=== PATIENT | male | born 1935 | race Caucasian/White ===

== ENCOUNTER 2019-04-16 15:19 | Inpatient (IN) ==
--- OUTSIDE RECORDS SUMMARY | 2019-04-16 15:22 | External Medical Summary | Continuity of Care Document ---
:1935 Author Name Eric Coronel, Provider Address Unavailable Unavailable , Care Team Providers Name Role Phone Demond [email or web address], [email or web address] Unavailable Unavailable Unavailable Unavailable Unavailable Problems Diabetes (250.00) (E11.9) Hyperlipidemia (272.4) (E78.5) Abscess of groin (682.2) (L02.214) Groin rash (782.1) (R21) Allergies and Adverse Reactions No Known Drug Allergies (Allergy) Medications Aspirin Adult Low Strength 81 MG Oral Ta blet Delayed Release; TAKE 1 TABLET DAILY. Start: 02-Feb-2016 Refills: 0 Atorvastatin Calcium 10 MG Oral Tablet; TAKE 1 TABLET DAILY. Start: 02-Feb-2016 Refills: 0 Cholecalciferol Crystals; USE DIRECTED. Start: 02-Feb-2016 Refills: 0 Diclofenac Sodium 75 MG Oral Tablet Delayed Release Start: 02-Feb-2016 Refills: 0 Lantus 100 UNIT/ML Subcutaneous Solution; INJECT SUBCUTANEOU SLY DIRECTED. Start: 02-Feb-2016 Refills: 0 HumuLIN R 100 UNIT/ML Injection Solution ; INJECT UNITS DIRECTED BASED ON BLOOD GLUCOSE Start: 02-Feb-2016 Refills: 0 Valsartan 40 MG Oral Tablet; TAKE 1 TABLET DAILY. Start: 02-Feb-2016 Refills: 0 Nystatin Powder; USE DIRECTED. Berna Chase art: 20-Feb-2016 Quantity: 1 1 Powder Bottle Refills: 2 Procedures History of Inguinal Hernia Repair Status : Completed History of Incision And Drainage Of Skin Abscess, Complicate d Status: Completed Immunizations Immunizations not documented Family History Father Family history of malignant neoplasm (V16.9) (Z80.9) Status: Active Social History - Smoking Status Never smoker Plan of Treatment Planned Observations Planned Goals not documented Results No Known Results Results not documented
[2019-04-16] MEDS ORDERED: SODIUM CHLORIDE 0.9% 500 ML IV SCH (15:45)
[2019-04-16 15:47] LABS: Basophils # (auto) 0.02 K/uL (0-0.2); Basophils % (auto) 0.2 %; Eosinophils # (auto) 0.14 K/uL (0-0.5); Eosinophils % (auto) 1.6 %; Hematocrit (blood only) 39.7 % (42-52); Hemoglobin 13.3 g/dL (14.0-18.0); Immature Granulocytes # (auto) 0.08 K/uL (0.00-0.02); Immature Granulocytes % (auto) 0.9 %; Lymphocytes # (auto) 2.04 K/uL (1.2-3.4); Lymphocytes % (auto) 23.4 %; Mean Corpuscular Hgb Conc 33.5 g/dL (32-36); Mean Corpuscular Volume 91.1 fL (80-100); Mean Platelet Volume 11.2 fL (7.4-10.4); Monocytes # (auto) 0.79 K/uL (0.11-0.59); Monocytes % (auto) 9.1 %; Neutrophils # (auto) 5.65 K/uL (1.4-6.5); Neutrophils % (auto) 64.8 %; Platelet Count 157 K/uL (130-400); RDW Coefficient of Variation 13.6 % (11.5-14.5); RDW Standard Deviation 45.7 fL (36.4-46.3); Red Blood Count 4.36 M/uL (4.7-6.1); White Blood Count 8.72 K/uL (4.8-10.8)
[2019-04-16 15:56] LABS: Prothrombin Time 10.3 Seconds (9.0-12.0)
[2019-04-16 16:30] LABS: Alanine Aminotransferase 29 U/L (12-78); Albumin Globulin Ratio 0.6 (0.9-2); Albumin Level 2.8 gm/dl (3.4-5.0); Alkaline Phosphatase 77 U/L (45-117); Bilirubin,Total 0.7 mg/dl (0.2-1); Blood Urea Nitrogen 35 mg/dl (7-18); Carbon Dioxide 25 mmol/L (21-32); Chloride 109 mmol/L (98-107); Est GFR (Non-African American) 45.7; Globulin 4.5 gm/dl (2.5-4.0); Glucose 218 mg/dl (70-99); Phosphorus 3.6 mg/dl (2.5-4.9); Sodium 140 mmol/L (136-145); Total Protein 7.3 gm/dl (6.4-8.2); Troponin I < 0.015 ng/ml (0-0.045)
--- NOTE | 2019-04-16 16:42 | XRay Report ---
XR chest 1V portable HISTORY: Syncope. weakness COMPARISON: Chest 01/29/2016. FINDINGS: There are low lung volumes. The cardiac silhouette remains mildly enlarged. No pleural effu sions. No pneumothorax. A few bibasilar linear densities. This favors subsegmental atelectasis. The l ungs are otherwise clear. No evidence for pulmonary edema. IMPRESSION: Low lung volumes with bibasilar linear densities favor and subsegmental atelectasis. Stable mild card iomegaly. Electronically signed by: Davis Goss M.D. 04/16/2019 4:41 PM
[2019-04-16 17:11] LABS: Potassium 4.5 mmol/L (3.5-5.1)
[2019-04-16 17:16] LABS: Magnesium 2.2 mg/dl (1.8-2.4)
[2019-04-16] MEDS ORDERED: DIPHTHERIA/TETANUS/PERTUSSIS 0.5 ML SYR/VIAL IM ONE (17:19)
[2019-04-16] MEDS ORDERED: LIDOCAINE/EPINEPHRINE 1% 20 ML VIAL INFIL ONE (17:19)
--- NOTE | 2019-04-16 17:29 | CT Scan Report ---
CT cervical spine wo con CT DOSE: 1085.57 mGy.cm CLINICAL HISTORY: 83 years-old Male with s/p fall. Acute head and neck injury status post fall COMPARISON: CT head of same day TECHNIQUE: Multiple axial CT images of the cervical spine were obtained without contrast. A dose low ering technique was utilized adhering to the principles of ALARA. FINDINGS: Demineralized appearance of the bones. Partially calcified pain is posterior to the deltoid process. Severe degenerative changes at C1-C2. No acute fracture or subluxation identified. Nuchal ligament ca lcifications are noted. Severe multilevel facet arthrosis. Mostly mild multilevel disc space narrowin g with mild to moderate spondylitic spurring. Posterior disc osteophyte complex formation noted at C3 -C4. Evaluation of the central canal and neuroforamina is better assessed by MRI. Mastoid air cells a nd middle ear cavities are clear. Lung apices are clear. No prevertebral soft tissue swelling. Soft t issues are unremarkable. IMPRESSION: No acute cervical spine fracture or subluxation. The above report was generated using voice recognition software. It may contain grammatical, syntax o r spelling errors. Electronically signed by: Yovany Lou M.D. 04/16/2019 5:27 PM
--- NOTE | 2019-04-16 17:31 | CT Scan Report ---
CT head/brain wo con CLINICAL HISTORY: 83 years-old Male with s/p fall, lac to top of head. Acute head injury status post fall with scalp laceration TECHNIQUE: Multiple axial CT images of the head were obtained without contrast. A dose lowering tech nique was utilized adhering to the principles of ALARA. COMPARISON: CT cervical spine of same day FINDINGS: No acute intracranial hemorrhage, midline shift, intracranial mass, hydrocephalus, territorial ischem ia or abnormal extra-axial collection. Age-related involutional changes. 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 Cerebral vascular calcifications are note d. The calvarium is intact. Mild mucosal thickening about the nasal turbinates and ethmoid air cells. T he opacified imaged left maxillary sinus. Orbits are unremarkable. Right parietal scalp laceration ne ar the vertex with mild subcutaneous edema. No opaque foreign body. IMPRESSION: 1. No acute intracranial abnormalities or calvarial fracture. 2. Right parietal scalp laceration with associated mild subcutaneous edema. No opaque foreign body. The above report was generated using voice recognition software. It may contain grammatical, syntax o r spelling errors. Electronically signed by: Yovany Lou M.D. 04/16/2019 5:30 PM
[2019-04-16] MEDS ORDERED: SODIUM CHLORIDE 0.9% 1000ML 500 ML IV ONE (17:57)
[2019-04-16 18:40] LABS: Lyme Ab IgG w/WB Rflx Negative (Negative); Lyme Ab IgM w/WB Rflx Negative (Negative)
--- NOTE | 2019-04-16 18:41 | History & Physical Report ---
Date of Service April 16, 2019 Assessment & Plan (1) Syncope: Concerned for possible cardiac etiology with no prodrome, waking up lucid and bradycardia noted by EMS on arrival to the scene. Pt denies chest pain, lightheadedness, nausea. He is asymptomatic. Later in the interview he report ed intermittent dizziness that just began in the last couple of weeks, however. Trend troponin, currently negative. Trend EKGs. Echo in am. (2) Bradycardia: Cont to monitor on telemetry. No dropped beats or pauses. First degree block noted. Not on any AV samira blocking agents. Concern for sick sinus syndrome. Consulted Cardiology to evaluate the need for pacemaker. Keep pacer pads in place overnight. (3) Diabetes: Insulin dependent diabetic. Primarily receives care at the [facility] and is unsure of insulin dosages/types. Will assist with diabetic education while admitted and will request [place] records. A1C for am. Basal bolus insulin ordered with carb coverage and a DMII diet. (4) BLANCA (acute kidney injury): Uncertain baseline creatinine/GFR. Currently .. Will repeat in am. (5) DVT prophylaxis: Heparin Full code confirmed with him on admission Dispo-pending Cardiology recs in am. DO Anali Peña Hospitalist History of Present Illness Chief Complaint: Syncope Primary Care Provider: NO PCP 83-year-old man with insulin-dependent diabetes had an episode of syncope while walking upstairs at a local bank. This was approximately 3:30 in the afternoon and he denies any hypoglycemic symptoms prior to the syncopal episode. He did not feel lightheaded or have any prodromal symptoms prior to syncope. When he awoke on the floor he was clear without any loss of bowel or bladder function. There was no seizure activity noted by bystanders. When EMS arrived they noted his heart rate was in the 30s. According to reports when they placed him on the monitor his heart rate was in the 60s. In the ER telemetry has revealed episodic heart rate drops into the 30s that are asymptomatic. There is a first- degree block and sinus rhythm is present. No dropped beats or pauses are seen on telemetry review. The patient denies feeling ill in the past few days and feels well right now. He denies any chest pain, shortness of breath, fevers, chills, coughing or recent illnesses, UTI symptoms, abdominal pain, changes in stool, blood in his bowel movements. He did just very his 1 month ago and appears to be handling this bereavement normally. He has 1 daughter named Sabrina who lives in [place]. She is his medical power of divorce attorney. He has a [id number] that lives in town whom he is calling to make aware he is here. He is a confirmed full code per my discussion with him this evening. He reports no history of heart disease or heart issues in the past. He denies any history of syncope in the past. There is no evidence of murmur on exam. Of note he is very uncertain of his insulin dosing and reports noncompliance. He is unsure which type of insulin he takes. His care is mainly through the [facility]. Allergies Allergy/AdvReac Type Severity Reaction Status Date / Time No Known Allergies Allergy Verified 04/16/19 15:54 Home Medications Home Medications Medication Instructions Recorded Confirmed Type insulin glargine 0 unit SUBCUT QAM #0 vial 08/18/14 04/16/19 History insulin aspart U-100 [Novolog 15 unit SUBCUT ACHS 04/16/19 04/16/19 History Flexpen U-100 Insulin] Past Med/Surg History Medical History Diabetes (Chronic) Surgical History H/O inguinal hernia repair History of incision and drainage Family History Father Cancer Other No pertinent family history in first degree relatives Social History marital status: / Current Living Situation: Alone Feels Safe at Home: Yes Smoking Status: Never smoker Hx Alcohol Use: No Hx Substance Use: No Review of Systems Review of Systems: All systems reviewed & are unremarkable except as noted in HPI & below Physical Exam Physical Exam: CONSTITUTIONAL: WNWD, vitals as above, generally well- appearing EYES: PERRL, normal conjunctivae, no scleral icterus ENT: external ear and nose normal, oropharynx clear, MMM NECK: trachea midline RESPIRATORY: clear to auscultation bilaterally, no crackles, rales or wheezes, normal respiratory effort CARDIOVASCULAR: regular rate and rhythm, S1 and 2 heard without murmurs, gallops or rubs, no JVD, trace peripheral edema CHEST: inspection of chest was normal GASTROINTESTINAL: normal bowel sounds, soft, nontender, nondistended MUSCULOSKELETAL: strength 5/5 throughout, head is normocephalic with a large laceration that is closed with eyal to posterior scalp. SKIN: warm and dry and wound noted above. NEUROLOGIC: No facial palsy, no dysarthria. CN 2-12 grossly intact, no sensory deficit, normal cognition, normal speech, no tremor. No gross focal deficits. PSYCHIATRIC: alert cooperative and oriented to person, place and time. Results & Data Vital Signs (Past 12 Hours) Vital Signs Temp Pulse Pulse Resp BP BP Pulse Ox 04/16/19 17:30 58 L 20 144/81 H 97 04/16/19 15:40 95 04/16/19 15:29 36.5 C 75 18 146/80 H 95 Laboratory Results Short CBC 04/16/19 Range/Units 15:30 WBC 8.72 (4.8-10.8) K/uL Hgb 13.3 L (14.0-18.0) g/dL Hct 39.7 L (42-52) % Plt Count 157 (130-400) K/uL BMP 04/16/19 04/16/19 15:30 16:47 Sodium 140 Potassium TNP 4.5 Chloride 109 H Carbon Dioxide 25 BUN 35 H Creatinine 1.41 H Glucose 218 H Calcium 9.0 Cardiac Enzymes 04/16/19 Range/Units 15:30 Troponin I < 0.015 (0-0.045) ng/ml Liver Function 04/16/19 04/16/19 Range/Units 15:30 16:47 Total Bilirubin 0.7 (0.2-1) mg/dl AST TNP 17 ALT 29 (12-78) U/L Alkaline Phosphatase 77 (45-117) U/L Albumin 2.8 L (3.4-5.0) gm/dl Diagnostic Findings CT cervical spine wo con CT DOSE: 1085.57 mGy.cm CLINICAL HISTORY: 83 years-old Male with s/p fall. Acute head and neck injury status post fall COMPARISON: CT head of same day TECHNIQUE: Multiple axial CT images of the cervical spine were obtained without contrast. A dose lowering technique was utilized adhering to the principles of ALARA. FINDINGS: Demineralized appearance of the bones. Partially calcified pain is posterior to the deltoid process. Severe degenerative changes at C1-C2. No acute fracture or subluxation identified. Nuchal ligament calcifications are noted. Severe multilevel facet arthrosis. Mostly mild multilevel disc space narrowing with mild to moderate spondylitic spurring. Posterior disc osteophyte complex formation noted at C3-C4. Evaluation of the central canal and neuroforamina is better assessed by MRI. Mastoid air cells and middle ear cavities are clear. Lung apices are clear. No prevertebral soft tissue swelling. Soft tissues are unremarkable. IMPRESSION: No acute cervical spine fracture or subluxation. XR chest 1V portable HISTORY: Syncope. weakness COMPARISON: Chest 01/29/2016. FINDINGS: There are low lung volumes. The cardiac silhouette remains mildly enlarged. No pleural effusions. No pneumothorax. A few bibasilar linear densities. This favors subsegmental atelectasis. The lungs are otherwise clear. No evidence for pulmonary edema. IMPRESSION: Low lung volumes with bibasilar linear densities favor and subsegmental atelectasis. Stable mild cardiomegaly. CT head/brain wo con CLINICAL HISTORY: 83 years-old Male with s/p fall, lac to top of head. Acute head injury status post fall with scalp laceration TECHNIQUE: Multiple axial CT images of the head were obtained without contrast. A dose lowering technique was utilized adhering to the principles of ALARA. COMPARISON: CT cervical spine of same day FINDINGS: No acute intracranial hemorrhage, midline shift, intracranial mass, hydrocephalus, territorial ischemia or abnormal extra-axial collection. Age- related involutional changes. 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 Cerebral vascular calcifications are noted. The calvarium is intact. Mild mucosal thickening about the nasal turbinates and ethmoid air cells. The opacified imaged left maxillary sinus. Orbits are unremarkable. Right parietal scalp laceration near the vertex with mild subcutaneous edema. No opaque foreign body. IMPRESSION: 1. No acute intracranial abnormalities or calvarial fracture. 2. Right parietal scalp laceration with associated mild subcutaneous edema. No opaque foreign body. Code Status & VTE Plan Code Status Full VTE Prophylaxis Plan VTE Prophylaxis will be ordered: Yes Critical Care Time Critical Care Time: No Prolonged Care Time Prolonged Care Time: No
[2019-04-16] MEDS ORDERED: DEXTROSE 50% 50 ML SYRINGE IV PRN (20:56)
[2019-04-16] MEDS ORDERED: GLUCOSE 40% GEL 15 GM TUBE PO PRN (20:56)
[2019-04-16] MEDS ORDERED: GLUCOSE 10 TABS/TUBE PO PRN (20:56)
[2019-04-16] MEDS ORDERED: NITROGLYCERIN SL 0.4 MG/TAB TAB SL PRN (20:56)
[2019-04-16] MEDS ORDERED: MoRPHine SULFATE 2 MG/ML CARP IV PRN (20:56)
[2019-04-16] MEDS ORDERED: ONDANSETRON INJ 2 MG/ML 2 ML VIAL IV PRN (20:56)
[2019-04-16] MEDS ORDERED: ACETAMINOPHEN 325 MG TAB PO PRN (20:56)
[2019-04-16] MEDS ORDERED: CARBOHYDRATES FOR HYPOGLYCEMIA PO PRN (20:56)
[2019-04-16] MEDS ORDERED: GLUCAGON FOR INJ 1 MG VIAL SQ PRN (20:56)
[2019-04-16] MEDS: INSULIN ASPART 100 UNITS/ML 3 ML PEN SC SCH (21:52)
[2019-04-16] MEDS: INSULIN GLARGINE SOLOSTAR 100 UNITS/ML 3 ML PEN SC SCH (21:53)
[2019-04-16] MEDS: HEPARIN SOD 5,000 UNIT/0.5 ML VIAL SQ SCH (21:55)
[2019-04-17 03:27] LABS: Hematocrit (blood only) 39.6 % (42-52); Hemoglobin 13.3 g/dL (14.0-18.0); Mean Corpuscular Hgb Conc 33.6 g/dL (32-36); Mean Corpuscular Volume 91.9 fL (80-100); Mean Platelet Volume 10.7 fL (7.4-10.4); Platelet Count 162 K/uL (130-400); RDW Coefficient of Variation 13.6 % (11.5-14.5); RDW Standard Deviation 45.8 fL (36.4-46.3); Red Blood Count 4.31 M/uL (4.7-6.1); White Blood Count 8.67 K/uL (4.8-10.8)
[2019-04-17 03:50] LABS: BUN Creatinine Ratio 26.2 (10-20); Calcium 8.4 mg/dl (8.5-10.1); Creatinine Clr Calc Pharmacy 57.9 ml/min; Est GFR (African American) 66.4; Est GFR (Non-African American) 57.3; Potassium 3.5 mmol/L (3.5-5.1); Troponin I 0.024 ng/ml (0-0.045)
[2019-04-17] MEDS: HEPARIN SOD 5,000 UNIT/0.5 ML VIAL SQ SCH ×2 (06:03→17:56)
[2019-04-17 06:24] LABS: Estimated Average Glucose 269 mg/dl
[2019-04-17] MEDS: INSULIN ASPART 100 UNITS/ML 3 ML PEN SC SCH ×4 (08:29→20:41)
[2019-04-17] MEDS: INSULIN GLARGINE SOLOSTAR 100 UNITS/ML 3 ML PEN SC SCH ×2 (08:30→20:43)
--- NOTE | 2019-04-17 09:24 | Cardiology Consultation ---
Date of Consultation April 17, 2019 Assessment & Plan (1) Syncope: (2) Bradycardia: (3) Intraventricular conduction delay: (4) First degree AV block: 83-year-old patient admitted with syncope. Symptomatic bradycardia is suspected given underlying conduction disease. Patient remains bradycardic on telemetry with heart rates as low as 38 bpm. [facility]. Avoid all AV samira blocking agents. TSH and Lyme screen within normal limits. Discussed potential need for pacemaker implantation. Patient agreeable. Continued observation on telemetry with tentative plans for possible pacemaker insertion on Friday. Will discuss with electrophysiology. Fall precautions advised. Out of bed with assistance only. Thank you for allowing me to participate in the care of your patient. History of Present Illness Reason for Consultation: Symptomatic bradycardia, syncope Requesting Physician: Dr. Juarez Attending Physician: Flash Juarez MD History of Present Illness 83-year-old patient presented to the emergency department with syncope. Patient in his usual state of health when he proceeded to the bank yesterday. Upon entering the bank he lost consciousness, fell to the ground, struck the back of his head with resultant laceration. Patient became aware while laying on the ground. No postictal state, tonic-clonic movements,, or tongue biting. Denies any incontinence. No prior history of syncope. ECG demonstrates sinus bradycardia, first-degree AV block, with nonspecific intraventricular conduction delay. Admitted through the emergency department. Pulse rate of 30 reported at the scene. Sinus bradycardia with occasional PVCs on telemetry. Heart rates as low as 38/min recorded. No recurrent lightheadedness, dizziness, syncope or near syncope. Patient denies any chest discomfort or unusual shortness of breath. Denies personal history of coronary disease, congestive heart failure, rheumatic fever, or peripheral vascular disease. Carries history of diabetes. Home medications unknown. Patient is a poor historian. States he takes at least 3 medications in the a.m., however, unaware of medication names or doses. Unfortunately, his 1 month ago. He lives independently. Currently resting comfortably offers no concerns/complaints at this time. Allergies Allergy/AdvReac Type Severity Reaction Status Date / Time No Known Allergies Allergy Verified 04/16/19 15:54 Home Medications Home Medications Medication Instructions Recorded Confirmed Type insulin glargine 0 unit SUBCUT QAM #0 vial 08/18/14 04/16/19 History insulin aspart U-100 [Novolog 15 unit SUBCUT ACHS 04/16/19 04/16/19 History Flexpen U-100 Insulin] Patient History Medical History Diabetes (Chronic) Surgical History H/O inguinal hernia repair History of incision and drainage Family History Father Cancer Other No pertinent family history in first degree relatives Social History Preferred Language: Romanian Communication Ability: Effective Customer Counter Representative Required: No Beliefs That Will Affect Care: None marital status: / Current Living Situation: Alone Other Information That Helps Us Care for You: No Feels Safe at Home: Yes Safety Concerns: Feels Safe At This Time Smoking Status: Never smoker Hx Alcohol Use: No Hx Substance Use: No Review of Systems Review of Systems: All systems reviewed & are unremarkable except as noted in HPI & below Physical Exam Physical Exam: General: NAD, AAO x3, well nourished. Poor historian. HEENT: Normocephalic. Atraumatic. Conjunctiva pink, no scleral icterus. Neck: No carotid bruits, the carotid upstrokes are brisk. No JVD. No HJR Heart: Regular bradycardic rhythm with occasional ectopy, normal S-1 and S-2 no S-3 or S-4 gallop. No murmurs or rub appreciated. PMI is not displaced. No RV heave. Lungs: Clear bilateral without rales , rhonchi, or wheeze. Abdomen: Normal bowel sounds. Soft. Nontender. No masses or organomegaly. No abdominal bruits. Extremities: Trace to mild bilateral pedal and ankle edema. Pulses: radial=2/4, Dorsalis pedis =2/4. Neuro: Cranial nerves grossly intact. No focal motor deficit. Results & Data Vital Signs (Past 12 Hours) Vital Signs Temp Pulse Resp BP Pulse Ox 04/17/19 07:32 36.5 C 62 16 142/68 H 97 04/17/19 03:14 36.7 C 56 L 18 147/71 H 98 04/16/19 23:05 36.6 C 64 16 144/72 H 98 Laboratory Results Laboratory Results - last 24 hr 04/16/19 04/16/19 04/16/19 15:30 15:30 15:30 WBC 8.72 RBC 4.36 L Hgb 13.3 L Hct 39.7 L MCV 91.1 MCH 30.5 MCHC 33.5 RDW Std Deviation 45.7 RDW Coeff of Krista 13.6 Plt Count 157 MPV 11.2 H Immature Gran % (Auto) 0.9 Neut % (Auto) 64.8 Lymph % (Auto) 23.4 [place] % (Auto) 9.1 Eos % (Auto) 1.6 Baso % (Auto) 0.2 Immature Gran # (Auto) 0.08 H Neut # (Auto) 5.65 Lymph # (Auto) 2.04 [place] # (Auto) 0.79 H Eos # (Auto) 0.14 Baso # (Auto) 0.02 PT 10.3 INR 1.0 Sodium 140 Potassium TNP Chloride 109 H Carbon Dioxide 25 Anion Gap 6.0 BUN 35 H Creatinine 1.41 H Est Cr Clr Drug Dosing 48.0 Est GFR ( Amer) 53.0 Est GFR (Non-Af Amer) 45.7 BUN/Creatinine Ratio 25.0 H Glucose 218 H POC Glucose Estimat Average Glucose Hemoglobin A1c Calcium 9.0 Phosphorus 3.6 Magnesium TNP Total Bilirubin 0.7 AST TNP ALT 29 Alkaline Phosphatase 77 Troponin I < 0.015 Total Protein 7.3 Albumin 2.8 L Globulin 4.5 H Albumin/Globulin Ratio 0.6 L TSH 1.370 Lyme Disease IgG Ab Lyme Disease IgM Ab 04/16/19 04/16/19 04/16/19 15:30 16:47 20:34 WBC RBC Hgb Hct MCV MCH MCHC RDW Std Deviation RDW Coeff of Krista Plt Count MPV Immature Gran % (Auto) Neut % (Auto) Lymph % (Auto) [place] % (Auto) Eos % (Auto) Baso % (Auto) Immature Gran # (Auto) Neut # (Auto) Lymph # (Auto) [place] # (Auto) Eos # (Auto) Baso # (Auto) PT INR Sodium Potassium 4.5 Chloride Carbon Dioxide Anion Gap BUN Creatinine Est Cr Clr Drug Dosing Est GFR ( Amer) Est GFR (Non-Af Amer) BUN/Creatinine Ratio Glucose POC Glucose 223 H Estimat Average Glucose Hemoglobin A1c Calcium Phosphorus Magnesium 2.2 Total Bilirubin AST 17 ALT Alkaline Phosphatase Troponin I Total Protein Albumin Globulin Albumin/Globulin Ratio TSH Lyme Disease IgG Ab Negative Lyme Disease IgM Ab Negative 04/16/19 04/17/19 04/17/19 21:40 03:11 03:11 WBC 8.67 RBC 4.31 L Hgb 13.3 L Hct 39.6 L MCV 91.9 MCH 30.9 MCHC 33.6 RDW Std Deviation 45.8 RDW Coeff of Krista 13.6 Plt Count 162 MPV 10.7 H Immature Gran % (Auto) Neut % (Auto) Lymph % (Auto) [place] % (Auto) Eos % (Auto) Baso % (Auto) Immature Gran # (Auto) Neut # (Auto) Lymph # (Auto) [place] # (Auto) Eos # (Auto) Baso # (Auto) PT INR Sodium 141 Potassium 3.5 D Chloride 110 H Carbon Dioxide 27 Anion Gap 4.0 BUN 31 H Creatinine 1.17 Est Cr Clr Drug Dosing 57.9 Est GFR ( Amer) 66.4 Est GFR (Non-Af Amer) 57.3 BUN/Creatinine Ratio 26.2 H Glucose 194 H POC Glucose Estimat Average Glucose Hemoglobin A1c Calcium 8.4 L Phosphorus Magnesium Total Bilirubin AST ALT Alkaline Phosphatase Troponin I 0.036 0.024 Total Protein Albumin Globulin Albumin/Globulin Ratio TSH Lyme Disease IgG Ab Lyme Disease IgM Ab 04/17/19 04/17/19 03:11 07:43 WBC RBC Hgb Hct MCV MCH MCHC RDW Std Deviation RDW Coeff of Krista Plt Count MPV Immature Gran % (Auto) Neut % (Auto) Lymph % (Auto) [place] % (Auto) Eos % (Auto) Baso % (Auto) Immature Gran # (Auto) Neut # (Auto) Lymph # (Auto) [place] # (Auto) Eos # (Auto) Baso # (Auto) PT INR Sodium Potassium Chloride Carbon Dioxide Anion Gap BUN Creatinine Est Cr Clr Drug Dosing Est GFR ( Amer) Est GFR (Non-Af Amer) BUN/Creatinine Ratio Glucose POC Glucose 257 H Estimat Average Glucose 269 Hemoglobin A1c 11.0 H Calcium Phosphorus Magnesium Total Bilirubin AST ALT Alkaline Phosphatase Troponin I Total Protein Albumin Globulin Albumin/Globulin Ratio TSH Lyme Disease IgG Ab Lyme Disease IgM Ab (1) Syncope Syncope type: unspecified Qualified Code(s): R55 - Syncope and collapse
--- NOTE | 2019-04-17 09:33 | Emergency Department Note ---
Entered by Dennis Madera acting as a scribe for Damien Rose MD History of Present Illness General Chief complaint: Syncope Stated complaint: SYNCOPE Time Seen by Provider: 04/16/19 15:31 Source: patient History of Present Illness Provider complaint: Syncope Onset (ago): hour(s) (Just prior to arrival) 1 Location: head Radiation: non-radiation Pain Consistency: + other (Episodic) Relieved By: + none Exacerbated By: + none Associated symptoms: no headaches and no nausea/vomiting The patient is an 83 year old male w/ PMHx of DM who presents to the ED after having a syncopal episode about an hour prior to arrival. Per the nurse the patient was walking up steps at the bank when he suddenly syncopized. During the fall the patient struck his head resulting in a laceration on the posterior aspect of his skull. While EMS was assessing the patient he syncopized again but did not fall. The patient states that he felt fine prior to the incident. He notes that he has not eaten much today and he did take his insulin this morning. The patient denies any headache, CP, SOB, or N/V/D. He also denies having a pacemaker, using blood thinners, using tobacco or alcohol. He does not remember when his last tetanus was. Home Medications Home Medications Medication Instructions Recorded Confirmed Type insulin glargine 0 unit SUBCUT QAM #0 vial 08/18/14 04/16/19 History insulin aspart U-100 [Novolog 15 unit SUBCUT ACHS 04/16/19 04/16/19 History Flexpen U-100 Insulin] Allergies Allergy/AdvReac Type Severity Reaction Status Date / Time No Known Allergies Allergy Verified 04/16/19 15:54 Past Med/Surg History Medical History Diabetes (Chronic) Surgical History H/O inguinal hernia repair History of incision and drainage Family History Father Cancer Other No pertinent family history in first degree relatives Social History Preferred Language: Eritrean Communication Ability: Effective Animal Impersonator Required: No Beliefs That Will Affect Care: None marital status: / Current Living Situation: Alone Other Information That Helps Us Care for You: No Feels Safe at Home: Yes Safety Concerns: Feels Safe At This Time Smoking Status: Never smoker Hx Alcohol Use: No Hx Substance Use: No Review of Systems See HPI for pertinent positives & negatives. and A total of 10 systems reviewed and were otherwise negative Physical Exam Vital Signs Vital Signs - 24 hr 04/16/19 15:29 04/16/19 15:40 04/16/19 17:30 Temperature 36.5 C Temperature Source Oral Sepsis Recent Fever Within 48 Hours No Sepsis Action Taken by Nursing No Action Required Pulse Rate 75 Pulse Rate [Apical] 58 L Pulse Rhythm [Apical] Irregular Pulse Strength [Apical] Normal Respiratory Rate 18 20 Respiratory Effort / Characteristics Non-Labored Spontaneous Respiratory Depth Normal Normal Respiratory Pattern Regular Blood Pressure 146/80 H Blood Pressure [Right Arm] 144/81 H Blood Pressure Mean 102 Blood Pressure Mean [Right Arm] 102 Blood Pressure Position [Right Arm] Sitting Pulse Oximetry 95 95 97 Oxygen Delivery Method Room Air Room Air Room Air GENERAL: Well appearing, well nourished, NAD, non-toxic. HEAD: 6cm laceration just superior and horizontal to the occiput, the galea is not visualized, hemostatic. EYE EXAM: Normal conjunctiva. PERRL, no anisocoria and EOM's grossly intact w/o pain. OROPHARYNX: Moist mucus membranes. Grossly normal dentition. NECK: Supple, no nuchal rigidity, no adenopathy, non-tender. No signs of meningismus. No midline C spine TTP. LUNGS: Clear to auscultation. Normal chest wall mechanics. HEART: Bradycardic rate and irregular rhythm, no MRG. ABDOMEN: Abdomen soft, non-tender, normo-active bowel sounds, no masses, no rebound or guarding. BACK: No CVA TTP. SKIN: No rashes and no bruising. UPPER EXTREMITIES: Upper extremities are grossly normal. LOWER EXTREMITIES: No pitting edema. No calf pain. NEURO EXAM: A&O x3, cranial nerves II-XII grossly intact, normal speech, 5/5 strength throughout, no sensory deficits, good finger to nose, no pronator drift, moves all 4 extremities on command w/o issue. Procedures Laceration Laceration 1: Site: scalp Side (If applicable): right Size (cm): 6 Description: linear Depth: simple, single layer Local Anesthetic: lidocaine 1% and with epi Amount of anesthesia used (mL): 5 Pre-repair: irrigated extensively Skin layer closed with: other (eyal) Number of sutures: 6 Course 153: Past medical records reviewed. The patient was evaluated in room C07, and a complete history and physical examination were performed. The patient's blood sugar was 227 upon arrival. 1755: I spoke [facility] PAC [facility] They are going to accept him for further evaluation. 180: I repaired the patient's laceration. See procedure note for more information. Consultations Consultation #1: I spoke to Caryl Lopez Anali PAC under Dr. Shawn Pineda about the patient's case. They are going to accept him for further evaluation. Time: 17:55 Administered Medications Heparin Sodium (Porcine) (Heparin Sodium (Porcine)) 5,000 units SQ Q8 [facility] Stop: 05/16/19 21:59 Last Admin: 04/17/19 06:03 Dose: 5,000 units Documented by: [id number] Cosigned by: [id number] Admin: 04/16/19 21:55 Dose: 5,000 units Documented by: [id number] Cosigned by: [id number] Insulin Aspart (Novolog Flexpen) 0 units SC ACHS [facility] Stop: 05/16/19 20:59 Last Admin: 04/17/19 08:29 Dose: 9 units Documented by: [id number] Cosigned by: [id number] Admin: 04/16/19 21:52 Dose: 3 units Documented by: [id number] Cosigned by: [id number] Insulin Glargine (Lantus Solostar Pen) 10 units SC BID [facility] Stop: 05/16/19 20:59 Last Admin: 04/17/19 08:30 Dose: 10 units Documented by: [id number] Cosigned by: [id number] Admin: 04/16/19 21:53 Dose: 10 units Documented by: [id number] Cosigned by: [id number] Discontinued Medications Diphtheria/Pertussis/Tetanus Vacc (Adacel) 0.5 ml IM .ONCE ONE Stop: 04/16/19 17:20 Last Admin: 04/16/19 18:47 Dose: 0.5 ml Documented by: [id number] Sodium Chloride (Nss) 500 mls @ 999 mls/hr IV .Q31M MARCIE Stop: 04/16/19 16:15 Last Infusion: 04/16/19 16:10 Dose: 0 mls/hr Documented by: [id number] Admin: 04/16/19 15:40 Dose: 999 mls/hr Documented by: [id number] Sodium Chloride (Nss 1000ml) 500 mls @ 999 mls/hr IV .Q31M ONE Stop: 04/16/19 18:27 Last Infusion: 04/16/19 19:27 Dose: 0 mls/hr Documented by: [id number] Admin: 04/16/19 18:55 Dose: 999 mls/hr Documented by: [id number] Lidocaine/Epinephrine (Xylocaine/Epinephrine 1%) 20 ml INFIL NOW ONE Stop: 04/16/19 17:20 Last Admin: 04/16/19 17:56 Dose: 20 ml Documented by: [id number] Medical Decision Making Medical Records Attestation: I reviewed the patient's medical records. Home Medications Current Medication List: was personally reviewed by me Laboratory Data Attestation: I reviewed the patient's lab results. Result diagrams: 04/17/19 03:11 04/17/19 03:11 Lab Results 04/16/19 04/16/19 04/16/19 Range/Units 15:30 15:30 15:30 WBC 8.72 (4.8-10.8) K/uL RBC 4.36 L (4.7-6.1) M/uL Hgb 13.3 L (14.0-18.0) g/dL Hct 39.7 L (42-52) % MCV 91.1 (80-100) fL MCH 30.5 (25-34) pg MCHC 33.5 (32-36) g/dL RDW Std Deviation 45.7 (36.4-46.3) fL RDW Coeff of Krista 13.6 (11.5-14.5) % Plt Count 157 (130-400) K/uL MPV 11.2 H (7.4-10.4) fL Immature Gran % (Auto) 0.9 % Neut % (Auto) 64.8 % Lymph % (Auto) 23.4 % [place] % (Auto) 9.1 % Eos % (Auto) 1.6 % Baso % (Auto) 0.2 % Immature Gran # (Auto) 0.08 H (0.00-0.02) K/uL Neut # (Auto) 5.65 (1.4-6.5) K/uL Lymph # (Auto) 2.04 (1.2-3.4) K/uL [place] # (Auto) 0.79 H (0.11-0.59) K/uL Eos # (Auto) 0.14 (0-0.5) K/uL Baso # (Auto) 0.02 (0-0.2) K/uL PT 10.3 (9.0-12.0) Seconds INR 1.0 (0.9-1.1) Sodium 140 (136-145) mmol/L Potassium TNP Chloride 109 H (98-107) mmol/L Carbon Dioxide 25 (21-32) mmol/L Anion Gap 6.0 (3-11) BUN 35 H (7-18) mg/dl Creatinine 1.41 H (0.6-1.4) mg/dl Est Cr Clr Drug Dosing 48.0 ml/min Est GFR ( Amer) 53.0 Est GFR (Non-Af Amer) 45.7 BUN/Creatinine Ratio 25.0 H (10-20) Glucose 218 H (70-99) mg/dl Calcium 9.0 (8.5-10.1) mg/dl Phosphorus 3.6 (2.5-4.9) mg/dl Magnesium TNP Total Bilirubin 0.7 (0.2-1) mg/dl AST TNP ALT 29 (12-78) U/L Alkaline Phosphatase 77 (45-117) U/L Troponin I < 0.015 (0-0.045) ng/ml Total Protein 7.3 (6.4-8.2) gm/dl Albumin 2.8 L (3.4-5.0) gm/dl Globulin 4.5 H (2.5-4.0) gm/dl Albumin/Globulin Ratio 0.6 L (0.9-2) TSH 1.370 (0.300-4.500) uIu/ml Lyme Disease IgG Ab (Negative) Lyme Disease IgM Ab (Negative) 04/16/19 04/16/19 Range/Units 15:30 16:47 WBC (4.8-10.8) K/uL RBC (4.7-6.1) M/uL Hgb (14.0-18.0) g/dL Hct (42-52) % MCV (80-100) fL MCH (25-34) pg MCHC (32-36) g/dL RDW Std Deviation (36.4-46.3) fL RDW Coeff of Krista (11.5-14.5) % Plt Count (130-400) K/uL MPV (7.4-10.4) fL Immature Gran % (Auto) % Neut % (Auto) % Lymph % (Auto) % [place] % (Auto) % Eos % (Auto) % Baso % (Auto) % Immature Gran # (Auto) (0.00-0.02) K/uL Neut # (Auto) (1.4-6.5) K/uL Lymph # (Auto) (1.2-3.4) K/uL [place] # (Auto) (0.11-0.59) K/uL Eos # (Auto) (0-0.5) K/uL Baso # (Auto) (0-0.2) K/uL PT (9.0-12.0) Seconds INR (0.9-1.1) Sodium (136-145) mmol/L Potassium 4.5 Chloride (98-107) mmol/L Carbon Dioxide (21-32) mmol/L Anion Gap (3-11) BUN (7-18) mg/dl Creatinine (0.6-1.4) mg/dl Est Cr Clr Drug Dosing ml/min Est GFR ( Amer) Est GFR (Non-Af Amer) BUN/Creatinine Ratio (10-20) Glucose (70-99) mg/dl Calcium (8.5-10.1) mg/dl Phosphorus (2.5-4.9) mg/dl Magnesium 2.2 Total Bilirubin (0.2-1) mg/dl AST 17 ALT (12-78) U/L Alkaline Phosphatase (45-117) U/L Troponin I (0-0.045) ng/ml Total Protein (6.4-8.2) gm/dl Albumin (3.4-5.0) gm/dl Globulin (2.5-4.0) gm/dl Albumin/Globulin Ratio (0.9-2) TSH (0.300-4.500) uIu/ml Lyme Disease IgG Ab Negative (Negative) Lyme Disease IgM Ab Negative (Negative) Imaging Data Radiologist's Impression: Radiology results as stated below per my review and the radiologist's interpretation: XR chest 1V portable HISTORY: Syncope. weakness COMPARISON: Chest 01/29/2016. FINDINGS: There are low lung volumes. The cardiac silhouette remains mildly enlarged. No pleural effusions. No pneumothorax. A few bibasilar linear densities. This favors subsegmental atelectasis. The lungs are otherwise clear. No evidence for pulmonary edema. IMPRESSION: Low lung volumes with bibasilar linear densities favor and subsegmental atelectasis. Stable mild cardiomegaly. Electronically signed by: Davis Goss M.D. 04/16/2019 4:[address] head/brain wo con CLINICAL HISTORY: 83 years-old Male with s/p fall, lac to top of head. Acute head injury status post fall with scalp laceration TECHNIQUE: Multiple axial CT images of the head were obtained without contrast. A dose lowering technique was utilized adhering to the principles of ALARA. COMPARISON: CT cervical spine of same day FINDINGS: No acute intracranial hemorrhage, midline shift, intracranial mass, hydrocephal us, territorial ischemia or abnormal extra-axial collection. Age-related involutional changes. 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 Cerebral vascular calcifications are noted. The calvarium is intact. Mild mucosal thickening about the nasal turbinates and ethmoid air cells. The opacified imaged left maxillary sinus. Orbits are unremarkable. Right parietal scalp laceration near the vertex with mild subcutaneous edema. No opaque foreign body. IMPRESSION: 1. No acute intracranial abnormalities or calvarial fracture. 2. Right parietal scalp laceration with associated mild subcutaneous edema. No opaque foreign body. The above report was generated using voice recognition software. It may contain grammatical, syntax or spelling errors. Electronically signed by: Yovany Lou M.D. 04/16/2019 5:[address] cervical spine wo con CT DOSE: 1085.57 mGy.cm CLINICAL HISTORY: 83 years-old Male with s/p fall. Acute head and neck injury status post fall COMPARISON: CT head of same day TECHNIQUE: Multiple axial CT images of the cervical spine were obtained without contrast. A dose lowering technique was utilized adhering to the principles of ALARA. FINDINGS: Demineralized appearance of the bones. Partially calcified pain is posterior to the deltoid process. Severe degenerative changes at C1-C2. No acute fracture or subluxation identified. Nuchal ligament calcifications are noted. Severe multilevel facet arthrosis. Mostly mild multilevel disc space narrowing with mild to moderate spondylitic spurring. Posterior disc osteophyte complex formation noted at C3-C4. Evaluation of the central canal and neuroforamina is better assessed by MRI. Mastoid air cells and middle ear cavities are clear. Lung apices are clear. No prevertebral soft tissue swelling. Soft tissues are unremarkable. IMPRESSION: No acute cervical spine fracture or subluxation. The above report was generated using voice recognition software. It may contain grammatical, syntax or spelling errors. Electronically signed by: Yovany Lou M.D. 04/16/2019 5:27 PM ECG Data Attestation: I personally reviewed and interpreted this ECG as follows: Indication: syncope Rate (beats per minute): 52 Rhythm: sinus bradycardia Findings: + other (Wide QRS), + 1st degree AV block, + Q waves (Leads V3-V6 and inferiorly) and + left axis deviation Comparison ECG Date: from (01/29/16) Change: the following changes noted (LA and QRS is now longer. Q waves in leads V3 and V6 are new) Blood Pressure Blood Pressure Findings: Elevated blood pressure Blood Pressure Disposition: further management by hospitalist FRANNIE Narrative The patient is an 83 year old male w/ PMHx of DM who presents to the ED after having a syncopal episode about an hour prior to arrival. Differential diagnosis includes etiologies such as vasovagal event, infection, hypoglycemia, electrolyte abnormalities, cardiac sources, intracerebral event, toxicologic, neurologic, as well as others were entertained. Patient was seen and evaluated the bedside. The patient did present with an episode of syncope. The patient did suffer a fall while at a bank today. The patient relates that he did not have any presyncopal symptoms. Currently denies any headache chest pain shortness of breath. Is putting her glucose is greater than 220. Patient is alert and oriented follows commands. Patient states that he does take insulin for known history of diabetes but does not take any blood thinners. Patient did a blood work completed along with a CT of the head and C- spine. The patient's EKG does show that he is new Q waves as well as a more prolonged LA and QRS. Given this and the fact that he has been radiating into the 30s with his recent episode of syncope I believe the benefit from monitoring telemetry as well as cardiology consultation. Is with the on-call hospitalist and patient was admitted. Impression & Plan Syncope, Laceration of scalp Discharge Plan Visit Data *Final* Discharge Date/Time: 04/16/19 19:51 Chief Complaint: Syncope Stated Complaint: SYNCOPE ED Provider: Damien Rose Discharge Problem: Syncope, Laceration of scalp Patient Disposition: Admitted As Inpatient Discharge Instructions Interventions: ED Discharge Assessment Last Done: 04/16/19 19:51 Discharge Problem: Syncope Qualifiers: Syncope type: unspecified Qualified Code(s): R55 - Syncope and collapse The scribe's documentation has been prepared under my direction and personally reviewed by me in its entirety. I confirm that the note above accurately reflects all work, treatment, procedures, and medical decision making performed by me.
--- NOTE | 2019-04-17 11:34 | Hospitalist Progress Note ---
Date of Service April 17, 2019 Assessment & Plan (1) Syncope: (2) Bradycardia: Likely underlying sick sinus syndrome Cardiology consulted Recommend pacemaker implantation on Friday No AV samira blocking agents Monitor in telemetry (3) Diabetes: A1c 11 On insulin glargine and aspart at home Consult pharmacy for glycemic control (4) BLANCA (acute kidney injury): Creatinine 1.17 Monitor (5) DVT prophylaxis: Heparin Full code confirmed with him on admission Dispo Pending Elevation management of bradycardia, possible sick sinus syndrome in progress We will order PT and OT evaluation Case discussed with patient in detail, all questions answered He is understanding comfortable with plan of care Subjective Follow-up for bradycardia, syncope Seen resting in bedside chair, comfortable, in good spirits States he feels fine overall Denies dizziness, chest pain, palpitations, shortness of breath Denies headache, focal neurologic symptoms No other symptoms Review of Systems Review of Systems: All systems reviewed & are unremarkable except as noted in HPI & below Physical Exam Physical Exam: General- oriented x 3, not in distress, speaks in sentences with no effort or accessory muscle use Head-positive laceration in the parietal area, right side-eyal in place, no bleeding or discharge Eyes- PERRL, EOMI, anicteric ENT- oropharynx clear Neck- supple, no JVD, no adenopathy, no thyromegaly; carotids +2/2, no bruits appreciated Lungs- clear to auscultation bilaterally, no rales/wheezes Heart-mild bradycardia, regular rhythm; no murmur, no gallop, no rub appreciated Abdomen- normal bowel sounds, nondistended, soft, nontender, no masses or hepatosplenomegaly Extremities- no pretibial edema, no calf tenderness; peripheral pulses intact Neuro- alert, oriented x 3; CN 2-12 grossly intact; motor 5/5 bilaterally;sensation 100% on all extremities; no other gross focal neurologic deficits Skin- warm & dry Results & Data Vital Signs (Past 12 Hours) Vital Signs Temp Pulse Resp BP Pulse Ox 04/17/19 07:32 36.5 C 62 16 142/68 H 97 04/17/19 03:14 36.7 C 56 L 18 147/71 H 98 Laboratory Results Laboratory Results - last 24 hr 04/16/19 04/16/19 04/16/19 15:30 15:30 15:30 WBC 8.72 RBC 4.36 L Hgb 13.3 L Hct 39.7 L MCV 91.1 MCH 30.5 MCHC 33.5 RDW Std Deviation 45.7 RDW Coeff of Krista 13.6 Plt Count 157 MPV 11.2 H Immature Gran % (Auto) 0.9 Neut % (Auto) 64.8 Lymph % (Auto) 23.4 [place] % (Auto) 9.1 Eos % (Auto) 1.6 Baso % (Auto) 0.2 Immature Gran # (Auto) 0.08 H Neut # (Auto) 5.65 Lymph # (Auto) 2.04 [place] # (Auto) 0.79 H Eos # (Auto) 0.14 Baso # (Auto) 0.02 PT 10.3 INR 1.0 Sodium 140 Potassium TNP Chloride 109 H Carbon Dioxide 25 Anion Gap 6.0 BUN 35 H Creatinine 1.41 H Est Cr Clr Drug Dosing 48.0 Est GFR ( Amer) 53.0 Est GFR (Non-Af Amer) 45.7 BUN/Creatinine Ratio 25.0 H Glucose 218 H POC Glucose Estimat Average Glucose Hemoglobin A1c Calcium 9.0 Phosphorus 3.6 Magnesium TNP Total Bilirubin 0.7 AST TNP ALT 29 Alkaline Phosphatase 77 Troponin I < 0.015 Total Protein 7.3 Albumin 2.8 L Globulin 4.5 H Albumin/Globulin Ratio 0.6 L TSH 1.370 Lyme Disease IgG Ab Lyme Disease IgM Ab 04/16/19 04/16/19 04/16/19 15:30 16:47 20:34 WBC RBC Hgb Hct MCV MCH MCHC RDW Std Deviation RDW Coeff of Krista Plt Count MPV Immature Gran % (Auto) Neut % (Auto) Lymph % (Auto) [place] % (Auto) Eos % (Auto) Baso % (Auto) Immature Gran # (Auto) Neut # (Auto) Lymph # (Auto) [place] # (Auto) Eos # (Auto) Baso # (Auto) PT INR Sodium Potassium 4.5 Chloride Carbon Dioxide Anion Gap BUN Creatinine Est Cr Clr Drug Dosing Est GFR ( Amer) Est GFR (Non-Af Amer) BUN/Creatinine Ratio Glucose POC Glucose 223 H Estimat Average Glucose Hemoglobin A1c Calcium Phosphorus Magnesium 2.2 Total Bilirubin AST 17 ALT Alkaline Phosphatase Troponin I Total Protein Albumin Globulin Albumin/Globulin Ratio TSH Lyme Disease IgG Ab Negative Lyme Disease IgM Ab Negative 04/16/19 04/17/19 04/17/19 21:40 03:11 03:11 WBC 8.67 RBC 4.31 L Hgb 13.3 L Hct 39.6 L MCV 91.9 MCH 30.9 MCHC 33.6 RDW Std Deviation 45.8 RDW Coeff of Krista 13.6 Plt Count 162 MPV 10.7 H Immature Gran % (Auto) Neut % (Auto) Lymph % (Auto) [place] % (Auto) Eos % (Auto) Baso % (Auto) Immature Gran # (Auto) Neut # (Auto) Lymph # (Auto) [place] # (Auto) Eos # (Auto) Baso # (Auto) PT INR Sodium 141 Potassium 3.5 D Chloride 110 H Carbon Dioxide 27 Anion Gap 4.0 BUN 31 H Creatinine 1.17 Est Cr Clr Drug Dosing 57.9 Est GFR ( Amer) 66.4 Est GFR (Non-Af Amer) 57.3 BUN/Creatinine Ratio 26.2 H Glucose 194 H POC Glucose Estimat Average Glucose Hemoglobin A1c Calcium 8.4 L Phosphorus Magnesium Total Bilirubin AST ALT Alkaline Phosphatase Troponin I 0.036 0.024 Total Protein Albumin Globulin Albumin/Globulin Ratio TSH Lyme Disease IgG Ab Lyme Disease IgM Ab 04/17/19 04/17/19 03:11 07:43 WBC RBC Hgb Hct MCV MCH MCHC RDW Std Deviation RDW Coeff of Krista Plt Count MPV Immature Gran % (Auto) Neut % (Auto) Lymph % (Auto) [place] % (Auto) Eos % (Auto) Baso % (Auto) Immature Gran # (Auto) Neut # (Auto) Lymph # (Auto) [place] # (Auto) Eos # (Auto) Baso # (Auto) PT INR Sodium Potassium Chloride Carbon Dioxide Anion Gap BUN Creatinine Est Cr Clr Drug Dosing Est GFR ( Amer) Est GFR (Non-Af Amer) BUN/Creatinine Ratio Glucose POC Glucose 257 H Estimat Average Glucose 269 Hemoglobin A1c 11.0 H Calcium Phosphorus Magnesium Total Bilirubin AST ALT Alkaline Phosphatase Troponin I Total Protein Albumin Globulin Albumin/Globulin Ratio TSH Lyme Disease IgG Ab Lyme Disease IgM Ab
[2019-04-17] MEDS ORDERED: PHARMACY GLYCEMIC MGMT CONSULT PRN (11:48)
[2019-04-17] MEDS ORDERED: INSULIN GLARGINE SOLOSTAR 100 UNITS/ML 3 ML PEN SC ONE (12:00)
--- NOTE | 2019-04-17 13:35 | Pharmacy Report ---
Glycemic Control Consultation - Date of Service April 17, 2019 - Scope Scope: Glycemic Pharmacist consulted by Dr Juarez on 04/17/19 for glycemic control and to write orders per [facility] inpatient glycemic control protocol - Objective Weight: 111 kg Accuchecks BSG (last 24hrs): 04/16/19 04/16/19 04/17/19 15:30 20:34 03:11 Glucose 218 H 194 H POC Glucose 223 H 04/17/19 04/17/19 07:43 11:20 Glucose POC Glucose 257 H 289 H Laboratory Data (last 24hrs): 04/16/19 04/16/19 04/17/19 15:30 16:47 03:11 Potassium TNP 4.5 3.5 D Carbon Dioxide 25 27 Anion Gap 6.0 4.0 Creatinine 1.41 H 1.17 Est Cr Clr Drug Dosing 48.0 57.9 HbA1c: Hemoglobin A1c 11.0 % (4.5-5.6) H 04/17/19 03:11 - Recent Pertinent Medications Outpatient Anti-diabetic Regimen: * Lantus plus Novolog (doses are uncertain per patient)- treated by [facility] * A1c = 11.0 % 04/17/19 The patient is currently receiving: * Basal insulin: Lantus 10 units every 12 hours * Correctional Insulin: Novolog Correction per scale ACHS Goal Range: Low 140 mg/dL - High 180 mg/dL Correction Factor: 20 mg/dL/unit * Prandial insulin: Per carb ratio of 1 unit per 7 grams CHO consumed * Oral Agents: Risk Factors for Insulin Resistance: * Diet: T2DM - Assessment & Plan Assessment & Plan: ASSESSMENT: * Mr King was admitted with syncope perhaps from bradycardia. He is maintained on insulin as an outpatient, but he does not know the doses. HbA1C indicates poor control as an outpatient. * Will start with weight-based stress of 2 Lantus and Novolog. Reduce goal range to 110-140 mg/dL. * For this evening, will have a scale of Lantus allowing for a slightly higher dose. No overnight checks not critically ill. PLAN FOR INPATIENT GLYCEMIC CONTROL: * Basal insulin * Lantus 20 units SQ x 1 then 20 units BID (25 units if blood sugar over 180 mg/dL) * Bolus insulin * NovoLog per scale ACHS or Q6hrs while NPO * Goal Range: Low 140 mg/dL - High 180 mg/dL * Correction Factor: 20 mg/dL/unit * Nutritional / Prandial insulin per carb ratio of 1 unit per 7 grams CHO consumed * Please note that the plan above was derived based on current level of insulin resistance and hospital stress. These recommendations are appropriate for inpatient admission only. Plan of care upon discharge will need to be reassessed to avoid potential outpatient hypo/hyperglycemia. Thank you.
[2019-04-18] MEDS: HEPARIN SOD 5,000 UNIT/0.5 ML VIAL SQ SCH (06:31)
[2019-04-18] MEDS: INSULIN GLARGINE SOLOSTAR 100 UNITS/ML 3 ML PEN SC SCH ×2 (08:09→20:37)
[2019-04-18] MEDS: INSULIN ASPART 100 UNITS/ML 3 ML PEN SC SCH ×4 (08:10→20:36)
[2019-04-18] MEDS: POLYETHYLENE (MIRALAX) 17 GM PACK PO PRN (08:12)
--- NOTE | 2019-04-18 10:58 | Cardiology Progress Note ---
Date of Service April 18, 2019 Assessment & Plan (1) Syncope: (2) Bradycardia: (3) Intraventricular conduction delay: (4) First degree AV block: 83-year-old patient admitted with syncope. Symptomatic bradycardia is suspected given underlying conduction disease including right bundle branch block, left anterior fascicular block, and first-degree AV block. Recommend electrophysiology consultation with plans for pacemaker implantation[facility]. Continue to avoid any AV samira blocking agents at this time. Continue telemetry monitoring. Fall precautions advised. Patient should ambulate with assistance only. All questions answered satisfaction of both the patient and his family members. Subjective Patient seen and examined at the bedside. More alert today. Heart rate improved on telemetry. No recurrent bradycardia. No evidence of significant pauses or heart block. ECG demonstrates sinus bradycardia with a long first- degree AV block, right bundle branch block, left anterior fascicular block, occasional PVCs. Family present at bedside. They have questions regarding potential pacemaker implantation. They are unable to offer further details regarding patient's medical history or current medications. Review of Systems Review of Systems: All systems reviewed & are unremarkable except as noted in HPI & below Physical Exam Physical Exam: General: NAD, AAO x3, well nourished. Poor historian. HEENT: Normocephalic. Atraumatic. Conjunctiva pink, no scleral icterus. Neck: No carotid bruits, the carotid upstrokes are brisk. No JVD. No HJR Heart: Regular bradycardic rhythm with occasional ectopy, normal S-1 and S-2 no S-3 or S-4 gallop. No murmurs or rub appreciated. PMI is not displaced. No RV heave. Lungs: Clear bilateral without rales , rhonchi, or wheeze. Abdomen: Normal bowel sounds. Soft. Nontender. No masses or organomegaly. No abdominal bruits. Extremities: Trace to mild bilateral pedal and ankle edema. Pulses: radial=2/4, Dorsalis pedis =2/4. Neuro: Cranial nerves grossly intact. No focal motor deficit. Results & Data Vital Signs (Past 12 Hours) Vital Signs Temp Pulse Pulse Resp BP Pulse Ox 04/18/19 07:06 36.5 C 54 L 18 123/74 95 04/18/19 04:19 36.5 C 51 L 18 143/62 H 97 04/18/19 00:18 51 L 04/17/19 23:16 36.3 C L 48 L 22 143/82 H 97 (1) Syncope Syncope type: unspecified Qualified Code(s): R55 - Syncope and collapse
--- NOTE | 2019-04-18 15:27 | Hospitalist Progress Note ---
Date of Service April 18, 2019 Assessment & Plan (1) Syncope: 1) Syncope: (2) Bradycardia: Likely underlying sick sinus syndrome Cardiology consulted pacemaker implantation tomorrow No AV samira blocking agents Monitor in telemetry -- will obtain most recent records from [facility] to confirm if patient takes Beta Blockers (3) Diabetes: A1c 11 On insulin glargine and aspart at home Consult pharmacy for glycemic control (4) BLANCA (acute kidney injury): Creatinine 1.17 Monitor (5) DVT prophylaxis: Heparin Dispo Pending management of bradycardia, possible sick sinus syndrome in progress PT and OT evaluation Subjective ff up for syncope, bradycardia seen resting in bedside chair, comfortable states he feels fine overall denies dizziness, chest pain, palpitation no other symptoms Review of Systems Review of Systems: All systems reviewed & are unremarkable except as noted in HPI & below Physical Exam Physical Exam: General- oriented x 3, not in distress, speaks in sentences with no effort or accessory muscle use Eyes- anicteric Neck- no JVD Lungs- clear BS BL no rales Heart- normal rate, regular rhythm; no murmurs Abdomen- normal bowel sounds, nondistended, soft, nontender Extremities- no pretibial edema, no calf tenderness Neuro- alert, oriented x 3; no gross focal neurologic deficits Skin- warm & dry Results & Data Vital Signs (Past 12 Hours) Vital Signs Temp Pulse Resp BP Pulse Ox 04/18/19 11:00 36.3 C L 59 L 18 129/74 96 04/18/19 07:06 36.5 C 54 L 18 123/74 95 04/18/19 04:19 36.5 C 51 L 18 143/62 H 97 Laboratory Results Laboratory Results - last 24 hr 04/17/19 04/17/19 04/18/19 16:17 20:16 07:07 POC Glucose 128 H 154 H 128 H 04/18/19 11:06 POC Glucose 231 H
[2019-04-18] MEDS ORDERED: MAGNESIUM HYDROXIDE SUSP 30 ML UDC PO PRN (16:04)
[2019-04-18] MEDS: DOCUSATE SODIUM/SENNA 50/8.6MG TAB PO SCH ×2 (16:37→16:41)
[2019-04-19 01:30] LABS: Appearance Urine Clear (Clear); Bilirubin Urine Negative (Negative); Blood Urine Negative (Negative); Color Urine Yellow; Glucose Urine UA Trace (Negative); Ketones Urine Negative (Negative); Leukocyte Esterase Urine Negative (Negative); Nitrite Urine Negative (Negative); Protein Urine Negative (Negative); Specific Gravity Urine 1.018 (1.000-1.030); Urobilinogen Urine Negative (Negative)
[2019-04-19] MEDS: INSULIN ASPART 100 UNITS/ML 3 ML PEN SC SCH ×4 (08:32→21:20)
[2019-04-19] MEDS: INSULIN GLARGINE SOLOSTAR 100 UNITS/ML 3 ML PEN SC SCH ×2 (08:34→21:21)
[2019-04-19] MEDS: DOCUSATE SODIUM/SENNA 50/8.6MG TAB PO SCH (08:34)
--- NOTE | 2019-04-19 09:14 | Pharmacy Report ---
Glycemic Control Progress Note - Date of Service April 19, 2019 - Scope Glycemic Pharmacist consulted for glycemic control to write orders per [facility] inpatient glycemic control protocol. - Objective Accuchecks BSG(last 24 hours):: 04/18/19 04/18/19 04/18/19 11:06 16:09 20:17 POC Glucose 231 H 132 H 106 H 04/19/19 07:13 POC Glucose 126 H HbA1c:: Hemoglobin A1c 11.0 % (4.5-5.6) H 04/17/19 03:11 - Recent Pertinent Medications The patient is currently receiving: * Basal insulin: Lantus 20 units every 12 hours * Correctional Insulin: Novolog Correction per scale ACHS Goal Range: Low 110 mg/dL - High 140 mg/dL Correction Factor: 18 mg/dL/unit * Prandial insulin: Per carb ratio of 1 unit per 6 grams CHO consumed - Outpatient Anti-Diabetic Meds Lantus and Novolog - managed by the [facility] - Assessment & Plan ASSESSMENT: * See progress note from 04/17/19 for more background info, in short: * Pt receiving SQ basal bolus insulin regimen for hyperglycemia secondary to baseline DM (outpatient regimen on hold). * Patient is currently receiving an average of 69 units of insulin per day * 40 units of basal insulin * 29 units of prandial/correctional insulin * BSGs ranging 106 - 231 mg/dl over the past 24hrs * Changes needed to insulin regimen: * AM Fasting BSG = 126 mg/dl. This is in goal range for patient based on inpatient targets and co-morbidities. The patient's regimen is currently very basal heavy. Will reduce to 32 units/day. * Post-prandial BSGs are trending down - loosen slightly. * Total daily dose = 60-70 units. PLAN FOR INPATIENT GLYCEMIC CONTROL: * Decreasing Lantus 16 units SQ BID * Continuing correction factor of 20 mg/dl/unit * Continuing carb ratio of 1 unit per 7 grams CHO consumed * Continuing goal range of Low 110 mg/dL - High 140 mg/dL * Please note that the plan above was derived based on current level of insulin resistance and hospital stress. These recommendations are appropriate for inpatient admission only. Plan of care upon discharge will need to be reassessed to avoid potential outpatient hypo/hyperglycemia. Thank you.
[2019-04-19 11:18] LABS: BUN Creatinine Ratio 15.9 (10-20); Calcium 9.2 mg/dl (8.5-10.1); Creatinine Clr Calc Pharmacy 65.5 ml/min; Est GFR (African American) 78.4; Est GFR (Non-African American) 67.7; Potassium 4.1 mmol/L (3.5-5.1)
[2019-04-19] MEDS ORDERED: BUPIVACAINE 0.25% 30 ML VIAL ONE (11:20)
[2019-04-19] MEDS ORDERED: LIDOCAINE HCL 1% 20 ML VIAL ONE (11:20)
[2019-04-19] MEDS ORDERED: BACITRACIN INJ 50,000 UNIT VIAL ONE (11:21)
[2019-04-19] MEDS ORDERED: MIDAZOLAM HCL 5 MG/ML 1 ML VIAL ONE (11:27)
[2019-04-19] MEDS ORDERED: fentaNYL citrate 100 MCG/2 ML VIAL ONE (11:27)
[2019-04-19] MEDS ORDERED: CEFAZOLIN 250 MG/ML 1 GM VIAL ONE (11:28)
--- NOTE | 2019-04-19 11:45 | Pre Anesthesia Assessment ---
Date of Service April 19, 2019 Pre Sedation Assessment Vital Signs Temp Pulse Pulse Resp BP BP Pulse Ox 04/19/19 11:25 36.4 C L 58 L 16 154/78 H 96 04/19/19 08:00 55 L 04/19/19 07:37 36.3 C L 94 H 18 131/88 95 04/19/19 03:14 36.5 C 68 18 144/76 H 94 04/18/19 23:57 36.7 C 59 L 19 154/86 H 97 04/18/19 19:05 36.9 C 66 19 151/79 H 97 04/18/19 15:38 36.7 C 59 L 18 139/84 97 Cardiovascular + regular rate Respiratory + respiratory effort normal Pre-Sedation Airway Assessment Smoking Status: Never smoker Hx Sleep Apnea: No Hx Difficult Intubation: No Short, Thick Neck: No Thyromental Distance: > or= 3.5 Finger Breadths Oral Cavity: + WNL Mallampati Class: III ASA: ASA3 Procedure Planning Contraindications for Sedation: none Current Medications Reviewed: Yes Notes The planned sedation has been discussed with the patient. Informed Consent was obtained. I have identified the patient, determined the appropriateness of sedation and have assessed the patient immediately prior to the procedure. All medicine(s) and interventions are by my order.
--- NOTE | 2019-04-19 12:36 | Cardiology Progress Note ---
Date of Service April 19, 2019 Assessment & Plan (1) Syncope: likely due to symptomatic bradycardia with chronotropic incompetence, syncopizing after walking up stairs significantly bradycardiac at times on monitor significant underlying conduction system disease symptomatic bradycardia with underlying conduction system disease in the setting of malignant syncope, will proceed with dual chamber PPM placement, appreciate Dr. Bueno's input patient and family in agreement with plan for pacer today, remain npo (2) Intraventricular conduction delay: significant underlying conduction system disease (3) Laceration of scalp: secondary to syncopal event Subjective Pt seen and examined, with multiple family members in room. State that he feels well at rest but has not ambulated yet today. Denies cp, sob, palpitations, lightheadedness or dizziness. tele reviewed: sinus with variable rates 40's-90's. no significant arrhythmias or pauses Review of Systems Review of Systems: All systems reviewed & are unremarkable except as noted in HPI & below Physical Exam Physical Exam: General: Awake, alert and oriented x 3. No acute distress. HEENT: Normocephalic, atraumatic. Pupils equal, round and reactive to light and accommodation. Extraocular muscles are intact. Anicteric sclera. Moist mucous membranes. Neck: No JVD. No bruit. Cardiovascular: Regular. Positive S-4. Normal S-1 and S-2. No S-3. No murmurs or rubs. Pulmonary: Clear to auscultation B/L. No rales, rhonchi or wheezing Abdomen: Bowel sounds x 4, soft. No rebound, guarding or tenderness. No organomegaly. Extremities: No clubbing, cyanosis or edema. +2 pedal pulses bilaterally. Skin: Warm and dry. Results & Data Vital Signs (Past 12 Hours) Vital Signs Temp Pulse Pulse Resp BP BP Pulse Ox 04/19/19 11:25 36.4 C L 58 L 16 154/78 H 96 04/19/19 08:00 55 L 04/19/19 07:37 36.3 C L 94 H 18 131/88 95 04/19/19 03:14 36.5 C 68 18 144/76 H 94 (1) Syncope Syncope type: unspecified Qualified Code(s): R55 - Syncope and collapse
--- NOTE | 2019-04-19 12:47 | Procedure Note ---
Procedure Note Date of Service April 19, 2019 Note Procedure performed: Implantation of dual-chamber permanent pacemaker Staff service coordinator elderly facility: Julio Bueno MD Indication: Patient is a 83-year-old gentleman with a history syncope. 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 Based on his conduction disease and event he is felt to be a good candidate for permanent pacemaker due to symptomatic non reversible AV node dysfunction. Dual-chamber device was selected as patient is currently in sinus rhythm which to maintain AV synchrony. Procedure in detail: The patient was informed of the risks benefits and alternatives to the intended procedure and she wished to proceed. He was taken to the electrophysiology suite in a fasting state. A preoperative antibiotic had been administered. The patient was monitored electrocardiographically throughout today's procedure and conscious sedation was administered per protocol. The left upper pectoral area is prepped and draped in usual sterile fashion. This area was anesthetized using subcutaneous administration of a xylocaine solution. An incision was made at this site and carried down to the prepectoralis fascia using sharp dissection. Electrocautery was also employed for dissection as well as for hemostasis. A device pocket was fashioned tissues above the pectoralis muscle. Subsequent to this maneuver the left axillary vein was accessed using modified Seldinger technique. Sheaths were placed over guidewires at this site and used to facilitate passage of the pacing leads to the respective chambers under fluoroscopic guidance. This included right atrial and right ventricular leads. Adequate sensing and threshold parameters were obtained prior to Active fixation of the leads to the endocardial surface. The proximal portion leads were then sutured the prepectoral fascia using nonabsorbable suture. The device pocket was irrigated with antibiotic solution. The leads were then attached to the device. The device and leads were then placed in the pocket and pocket was closed in 3 layers of absorbable suture. Steri-Strips and sterile dressing were applied. The device was tested noninvasively prior to conclusion the procedure. The patient tolerated procedure well there no immediate complications. Equipment used: New pulse generator: Director Of Gift Planning [employer]. Model number: [id number] serial number: [id number] Right atrial lead: Director Of Gift Planning [employer]. Model number: 5076 serial number: [id number] Right ventricular lead: Director Of Gift Planning [employer]. Model number: 5076 serial number:[id number] Measured data: Right atrial lead: P-waves measured 2.9 millivolts. Pacing threshold 1.25 volts at 0.4 milliseconds with a pacing impedance of 494 Ohms Right ventricular lead: R-waves measures 10.9 millivolts. Pacing threshold 0.5 volts at 0.4 milliseconds with a pacing impedance 779 Ohms Impression: Successful implantation of dual-chamber permanent pacemaker Coding
[2019-04-19] MEDS ORDERED: ACETAMINOPHEN 325 MG TAB PO PRN (12:49)
[2019-04-19] MEDS ORDERED: OXYCODONE HCL IR 5 MG TAB (IMMEDIATE RELEASE) PO PRN (12:49)
--- NOTE | 2019-04-19 15:59 | Hospitalist Progress Note ---
Date of Service April 19, 2019 Assessment & Plan (1) Syncope: 1) Syncope: (2) Bradycardia: Likely underlying sick sinus syndrome Cardiology consulted s/p pacemaker continue to monitor request for records sent to [facility] (3) Diabetes: A1c 11 On insulin glargine and aspart at home Consulted pharmacy for glycemic control (4) BLANCA (acute kidney injury): Creatinine 1.17 Monitor (5) DVT prophylaxis: Heparin-- held for procedure Dispo Pending management of bradycardia, possible sick sinus syndrome in progress PT and OT evaluation Subjective ff up for syncope, bradycardia seen resting in bed, comfortable s/p pacemaker insertion denies pain on the pacemaker site no dizziness, chest pain, palpitations, nausea no other symptoms Review of Systems Review of Systems: All systems reviewed & are unremarkable except as noted in HPI & below Physical Exam Physical Exam: General- oriented x 3, not in distress, speaks in sentences with no effort or accessory muscle use Eyes- anicteric Neck- no JVD Lungs- clear BS BL Heart- normal rate, regular rhythm; no murmurs pacemaker site- no hematoma/edema/erythema/tenderness Abdomen- normal bowel sounds, nondistended, soft, nontender Extremities- mild lower leg edema, no calf tenderness Neuro- alert, oriented x 3; no gross focal neurologic deficits Skin- warm & dry Results & Data Vital Signs (Past 12 Hours) Vital Signs Temp Pulse Pulse Resp BP BP Pulse Ox 04/19/19 15:47 36.5 C 88 18 133/70 97 04/19/19 14:15 82 124/79 94 04/19/19 14:00 81 135/81 95 04/19/19 13:47 89 04/19/19 13:31 83 139/81 04/19/19 13:15 62 14 150/72 H 95 04/19/19 13:00 36.3 C L 55 L 16 139/74 95 04/19/19 11:25 36.4 C L 58 L 16 154/78 H 96 04/19/19 08:00 55 L 04/19/19 07:37 36.3 C L 94 H 18 131/88 95
[2019-04-19] MEDS: CEFAZOLIN 2000MG 2,000 MG/15 ML SYR IV SCH (19:58)
[2019-04-20] MEDS: CEFAZOLIN 2000MG 2,000 MG/15 ML SYR IV SCH ×2 (04:01→11:50)
--- NOTE | 2019-04-20 07:41 | XRay Report ---
XR chest 2V routine CLINICAL HISTORY: 83 years-old Male presenting with EXACT TIME ORDERED Evaluate for pneumothorax and l. TECHNIQUE: PA and lateral views of the chest were obtained. COMPARISON: 04/16/2019. FINDINGS: Interval placement of a left subclavian pacer with leads in the right atrium and right ventricular ap ex. Atherosclerosis of the aortic arch. Cardiac silhouette mildly enlarged. Numerous external leads o verlie the thorax to grating evaluation. Lungs and pleural spaces clear. Degenerative changes of the thoracic spine. Upper abdomen normal. IMPRESSION: 1. Appropriately positioned to lead pacer. No pneumothorax. Electronically signed by: Sean Mathur M.D. 04/20/2019 7:40 AM
[2019-04-20] MEDS: DOCUSATE SODIUM/SENNA 50/8.6MG TAB PO SCH (07:45)
[2019-04-20] MEDS: INSULIN ASPART 100 UNITS/ML 3 ML PEN SC SCH ×2 (07:50→11:47)
[2019-04-20] MEDS: POLYETHYLENE (MIRALAX) 17 GM PACK PO PRN (07:51)
[2019-04-20] MEDS: INSULIN GLARGINE SOLOSTAR 100 UNITS/ML 3 ML PEN SC SCH (07:51)
--- NOTE | 2019-04-20 09:21 | Cardiology Progress Note ---
Date of Service April 20, 2019 Assessment & Plan (1) Syncope: likely due to symptomatic bradycardia with chronotropic incompetence, syncopizing after walking up stairs significant underlying conduction system disease s/p dual chamber PPM placement tolerated well function and placement confirmed ok to d/c to home from cardiac standpoint my office will call to arrange device clinic f/u and f/u with Dr. Alfaro (2) Intraventricular conduction delay: significant underlying conduction system disease (3) Laceration of scalp: secondary to syncopal event Subjective Pt seen and examined, oob in chair, daughter at bedside. States that he feels great. No discomfort at pocket site. Denies cp, sob, palpitations, lightheadedness or dizziness. tele reviewed: sinus 60's-90's, no arrhythmias Review of Systems Review of Systems: All systems reviewed & are unremarkable except as noted in HPI & below Physical Exam Physical Exam: General: Awake, alert and oriented x 3. No acute distress. HEENT: Normocephalic, atraumatic. Pupils equal, round and reactive to light and accommodation. Extraocular muscles are intact. Anicteric sclera. Moist mucous membranes. Neck: No JVD. No bruit. Cardiovascular: Regular. Positive S-4. Normal S-1 and S-2. No S-3. No murmurs or rubs. Pulmonary: Clear to auscultation B/L. No rales, rhonchi or wheezing Abdomen: Bowel sounds x 4, soft. No rebound, guarding or tenderness. No organomegaly. Extremities: No clubbing, cyanosis or edema. +2 pedal pulses bilaterally. Skin: Warm and dry. Results & Data Vital Signs (Past 12 Hours) Vital Signs Temp Pulse Pulse Resp BP Pulse Ox 04/20/19 07:41 36.7 C 59 L 18 146/54 H 95 04/20/19 02:57 36.8 C 74 18 143/67 H 94 04/19/19 23:57 36.8 C 75 16 130/75 92 04/19/19 23:07 85 (1) Syncope Syncope type: unspecified Qualified Code(s): R55 - Syncope and collapse
--- NOTE | 2019-04-20 09:28 | Cardiology Progress Note ---
Date of Service April 20, 2019 Assessment & Plan (1) Bradycardia: He appears to have undergone successful device implantation of a dual- chamber Medtronic pacemaker yesterday. No evident complication. I would advocate keeping the wound dry for 1 week and Steri-Strips intact until follow- up with the nurses next week. He should refrain from lifting left arm above the shoulder behind the neck for 6 weeks. Subjective This morning patient claims feeling well. He had no significant discomfort at the device implant site left upper pectoral area. Physical Exam Physical Exam: Device implant site looks good. No significant hematoma. No significant erythema or drainage. Very mild ecchymosis. Results & Data Vital Signs (Past 12 Hours) Vital Signs Temp Pulse Pulse Resp BP Pulse Ox 04/20/19 07:41 36.7 C 59 L 18 146/54 H 95 04/20/19 02:57 36.8 C 74 18 143/67 H 94 04/19/19 23:57 36.8 C 75 16 130/75 92 04/19/19 23:07 85 Diagnostic Findings Chest x-ray demonstrated stable lead position without evidence of pneumothorax. Device interrogation revealed normal device function on both leads.
--- NOTE | 2019-04-20 12:36 | Pharmacy Report ---
Pharmacy Glycemic Short Note 2 - Date of Service April 20, 2019 - Glycemic Short BSG Results (Last 24 hours): 04/19/19 04/19/19 04/19/19 12:57 16:28 21:07 POC Glucose 125 H 212 H 163 H 04/20/19 04/20/19 07:20 11:10 POC Glucose 150 H 195 H - Outpatient Anti-Diabetic Meds * Lantus 24 units SQ daily * Novolog - managed by the [facility] * HbA1c: 11.0% (04/17/19) -- [place] reports an A1c of 9.3% 11/23/18 ASSESSMENT: 04/20/19: * Patient's fasting BSG was above goal this morning (150mg/dL). This suggests that basal insulin dosing is insufficient. Fasting BSG looked much better when patient was receiving Lantus 20 units BID. Expect that patient's basal needs are ~40 units per day. * Patient has demonstrated post-prandial hyperglycemia consistently, suggesting that he requires additional prandial insulin. * Patient is expected to be discharged today. 04/19/19 * See progress note from 04/17/19 for more background info, in short: * Pt receiving SQ basal bolus insulin regimen for hyperglycemia secondary to baseline DM (outpatient regimen on hold) * Patient is currently receiving an average of 69 units of insulin per day * 40 units of basal insulin * 29 units of prandial/correctional insulin * BSGs ranging 106 - 231 mg/dl over the past 24hrs * Changes needed to insulin regimen: * AM Fasting BSG = 126 mg/dl. This is in goal range for patient based on inpatient targets and co-morbidities. The patient's regimen is currently very basal heavy. Will reduce to 32 units/day. * Post-prandial BSGs are trending down - loosen slightly. * Total daily dose = 60-70 units. PLAN FOR INPATIENT GLYCEMIC CONTROL: * Increase Lantus to 20 units SQ BID * Continue correction factor of 20 mg/dl/unit * Tighten carb ratio to 1 unit per 6 grams CHO consumed * Continue goal range of Low 110 mg/dL - High 140 mg/dL PLAN FOR DISCHARGE: * Patient's A1c (11%) indicates sub-optimal glycemic control as an outpatient. Would prefer an A1c of ~8.5% for this 83yo with multiple co-morbidities. * Given patient's dementia, would prefer to keep insulin regimen as simple as possible. * It is clear that patient requires more basal insulin than he has been taking as an outpatient. * Consider Lantus 35-40 units SQ daily. * Would recommend adding fixed Novolog doses with each meal. * Consider Novolog 8-10 units prior to each meal. * Omit Novolog dose if patient does not eat. * Recommend careful titration of glycemic regimen to reduce the risk of hypoglycemia, in an elderly patient with dementia. * Recommend close f/u with outpatient provider after discharge to work toward optimizing A1c. * Please note that the plan above was derived based on current level of insulin resistance and hospital stress. These recommendations are appropriate for inpatient admission only. Plan of care upon discharge will need to be reassessed to avoid potential outpatient hypo/hyperglycemia. Thank you.
--- NOTE | 2019-04-20 12:55 | Hospitalist Progress Note ---
Date of Service April 20, 2019 Assessment & Plan (1) Syncope: 1) Syncope: (2) Bradycardia: Likely underlying sick sinus syndrome Cardiology consulted- Dr. Alfaro recommended Pacemaker placement, Dr. Bueno- EPS consulted s/p Dual Chamber Pacemaker Placement 04/19/2019 cleared for discharge today Cardiology clinic will be calling patient for ff up appointment advised NOT to drive- please re-evaluate fitness for driving on ff up with PCP/[facility] Scalp Laceration - staple removal this week c/o PCP (3) Diabetes: A1c 11 On insulin glargine and aspart at home Consulted pharmacy for glycemic control recommendation: Insulin Lantus 35 units in AM Aspart 8 units TID with meals (4) BLANCA (acute kidney injury): Creatinine 1.1 stable (5) Hypertension on Valsartan 40mg po daily (6) BPH on Tamsulosin HOLD Tamsulosin, until ff up with PCP with BP recheck Disposition ff up with PCP within this week ff up with [facility]- clinic to call patient case discussed with patient and his daughter in detail and at length all questions answered they are understanding, agreeable and comfortable with plan of care Subjective ff up for syncope, bradycardia seen resting in bedside chair, comfortable in good spirits states he feels fine overall denies chest pain, palpitations, dizziness, nausea no fever/chills no BM today but no abdominal pain, nausea no other symptoms Review of Systems Review of Systems: All systems reviewed & are unremarkable except as noted in HPI & below Physical Exam Physical Exam: General- oriented x 3, not in distress, speaks in sentences with no effort or accessory muscle use Eyes- anicteric Neck- no JVD Lungs- clear breath sounds bilaterally, no crackles/wheezing Heart- normal rate, regular rhythm; no murmurs pacemaker incision site- healing well, no erythema/hematoma/bleeding/discharge/swelling Abdomen- normal bowel sounds, nondistended, soft, nontender Extremities- no pretibial edema, no calf tenderness Neuro- alert, oriented x 3; no gross focal neurologic deficits Skin- warm & dry Results & Data Vital Signs (Past 12 Hours) Vital Signs Temp Pulse Resp BP BP Pulse Ox Pulse Ox 04/20/19 11:52 37.3 C 69 18 123/69 94 04/20/19 11:10 96 04/20/19 07:41 36.7 C 59 L 18 146/54 H 95 04/20/19 02:57 36.8 C 74 18 143/67 H 94 Laboratory Results Laboratory Results - last 24 hr 04/19/19 04/19/19 04/19/19 12:57 16:28 21:07 POC Glucose 125 H 212 H 163 H 04/20/19 04/20/19 07:20 11:10 POC Glucose 150 H 195 H
--- NOTE | 2019-04-21 12:01 | Discharge Summary ---
Date of Service April 21, 2019 Admission HPI Per Admitting Provider 83-year-old man with insulin-dependent diabetes had an episode of syncope while [place] local [place]. This was approximately 3:30 in the afternoon and he denies any hypoglycemic symptoms prior to the syncopal episode. He did not feel lightheaded or have any prodromal symptoms prior to syncope. When he awoke on the floor he was clear without any loss of bowel or bladder function. There was no seizure activity noted by bystanders. When EMS arrived they noted his heart rate was in the 30s. According to reports when they placed him on the monitor his heart rate was in the 60s. In the ER telemetry has revealed episodic heart rate drops into the 30s that are asymptomatic. There is a first- degree block and sinus rhythm is present. No dropped beats or pauses are seen on telemetry review. The patient denies feeling ill in the past few days and feels well right now. He denies any chest pain, shortness of breath, fevers, chills, coughing or recent illnesses, UTI symptoms, abdominal pain, changes in stool, blood in his bowel movements. He did just very his 1 month ago and appears to be handling this bereavement normally. He has 1 daughter named Sabrina who lives in [place]. She is his medical power of finance attorney. He has a [id number] that lives in [facility] whom he is calling to make aware he is here. He is a confirmed full code per my discussion with him this evening. He re ports no history of heart disease or heart issues in the past. He denies any history of syncope in the past. There is no evidence of murmur on exam. Of note he is very uncertain of his insulin dosing and reports noncompliance. He is unsure which type of insulin he takes. His care is mainly through the [facility]. Admission Exam Per Admitting Provider CONSTITUTIONAL: WNWD, vitals as above, generally well-appearing EYES: PERRL, normal conjunctivae, no scleral icterus ENT: external ear and nose normal, oropharynx clear, MMM NECK: trachea midline RESPIRATORY: clear to auscultation bilaterally, no crackles, rales or wheezes, normal respiratory effort CARDIOVASCULAR: regular rate and rhythm, S1 and 2 heard without murmurs, gallops or rubs, no JVD, trace peripheral edema CHEST: inspection of chest was normal GASTROINTESTINAL: normal bowel sounds, soft, nontender, nondistended MUSCULOSKELETAL: strength 5/5 throughout, head is normocephalic with a large laceration that is closed with eyal to posterior scalp. SKIN: warm and dry and wound noted above. NEUROLOGIC: No facial palsy, no dysarthria. CN 2-12 grossly intact, no sensory deficit, normal cognition, normal speech, no tremor. No gross focal deficits. PSYCHIATRIC: alert cooperative and oriented to person, place and time. Principal Diagnosis SYNCOPE SECONDARY TO SYMPTOMATIC BRADYCARDIA, LEFT SCALP LACERATION Discharge Exam General- oriented x 3, not in distress, speaks in sentences with no effort or accessory muscle use Eyes- anicteric Neck- no JVD Lungs- clear breath sounds bilaterally, no crackles/wheezing Heart- normal rate, regular rhythm; no murmurs pacemaker incision site- healing well, no erythema/hematoma/bleeding/discharge/swelling Abdomen- normal bowel sounds, nondistended, soft, nontender Extremities- no pretibial edema, no calf tenderness Neuro- alert, oriented x 3; no gross focal neurologic deficits Skin- warm & dry Discharge Data Allergies Allergy/AdvReac Type Severity Reaction Status Date / Time No Known Allergies Allergy Verified 04/16/19 15:54 Consultations 04/16/19 17:57 ED Decision to Admit Stat 04/16/19 20:56 Consult Cardiology Routine Consult Case Management - Discharge Planning Routine 04/19/19 10:59 Consult Health Information Management Routine Procedures Performed Operation Date: 04/19/19 11:25 Actual Procedures p Pacer with A/V Leads (Dual) - Romeo Bueno MD Ordered Studies 04/16/19 15:37 CT cervical spine wo con Stat CT head/brain wo con Stat CT head/brain wo con CLINICAL HISTORY: 83 years-old Male with s/p fall, lac to top of head. Acute head injury status post fall with scalp laceration TECHNIQUE: Multiple axial CT images of the head were obtained without contrast. A dose lowering technique was utilized adhering to the principles of ALARA. COMPARISON: CT cervical spine of same day FINDINGS: No acute intracranial hemorrhage, midline shift, intracranial mass, hydrocephalus, territorial ischemia or abnormal extra-axial collection. Age- related involutional changes. 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 Cerebral vascular calcifications are noted. The calvarium is intact. Mild mucosal thickening about the nasal turbinates and ethmoid air cells. The opacified imaged left maxillary sinus. Orbits are unremarkable. Right parietal scalp laceration near the vertex with mild subcutaneous edema. No opaque foreign body. IMPRESSION: 1. No acute intracranial abnormalities or calvarial fracture. 2. Right parietal scalp laceration with associated mild subcutaneous edema. No opaque foreign body. 04/19/19 11:30 EP Lab Images for PACS ONCE Hospital Course (1) Syncope: 1) Syncope: (2) Bradycardia: Likely underlying sick sinus syndrome Cardiology consulted- Dr. Alfaro recommended Pacemaker placement, Dr. Bueno- EPS consulted s/p Dual Chamber Pacemaker Placement 04/19/2019 cleared for discharge today Cardiology clinic will be calling patient for ff up appointment advised NOT to drive- please re-evaluate fitness for driving on ff up with PCP/[facility] Scalp Laceration - staple removal this week c/o PCP (3) Diabetes: A1c 11 On insulin glargine and aspart at home Consulted pharmacy for glycemic control recommendation: Insulin Lantus 35 units in AM Aspart 8 units TID with meals (4) BLANCA (acute kidney injury): Creatinine 1.1 stable (5) Hypertension on Valsartan 40mg po daily (6) Remote Lacunar Infarct seen on CT head: Remote lacunar infarctions about the right frontal archibald radiata and external capsule. Cerebral vascular calcifications are noted. full report on procedure section above -- start ASA when appropriate already on Lipitor strict control BP, A1c, other risk factors (7) BPH on Tamsulosin HOLD Tamsulosin, until ff up with PCP with BP recheck Disposition ff up with PCP within this week ff up with [facility]- clinic to call patient case discussed with patient and his daughter in detail and at length all questions answered they are understanding, agreeable and comfortable with plan of care Total Time Total Time Spent Total Time Spent (In Minutes): 60 minutes Discharge Plan Discharge Items Patient Disposition: Home - Home Health Services Reason For Visit: SYMPTOMATIC BRADYCARDIA, SYNCOPE Discharge Diagnosis: LOSS OF CONSCIOUSNESS, LOW HEART RATE; PACEMAKER IMPLANTATION Discharge Goals: Diagnostic testing and Therapeutic intervention Activity: As commented below Activity Comment: Resume activity gradually as tolerated, always use the rolling walker, always ambulate to carefully Lifting: Wait until after follow-up appointment Lifting Comment: No lifting on the left arm above the shoulder, for 6 weeks Bathing Comment: No bathing Exercise/Sports: Wait until after follow-up appointment Driving/Machine Use Comment: No driving until reevaluation by museum tour guide and primary care physician Non-emergency contact: Primary Care Provider Call non-emergency contact if: you have any medication questions, you have a fever, your wound has increased redness, your wound has increased drainage and your wound pain has increased Follow-up/Referrals: Juan Diego Alfaro DO [[facility]] - Alejandra Winslow PA-C [Primary Care Provider] - Diet: Carb Consistent or DM2 and Heart Healthy Addtl Provider Instructions: Please follow-up with primary care physician in [facility] with this week. Follow-up with [facility] museum tour guide Dr. Alfaro within 1 week. Their office will be calling you soon for the appointment. Contact information outlined above. Please review new medication list and follow instructions carefully. Always stay well-hydrated. Do not skip meals. Always eat 3 meals a day. Call 911 immediately if with recurrence of loss of consciousness. ACTIVITY RECOMMENDATIONS: * Do not raise affected arm over head for 6 weeks. SPECIAL CARE INSTRUCTIONS: * If bleeding occurs, apply direct pressure to area for 5 minutes. * Call your doctor if you have severe pain, fever, drainage or bleeding at site. * Keep dressing on and dry for 1 week then remove. * Keep any scheduled doctor's appointment. FOLLOW UP VISIT: Keep any scheduled doctor appointments. Prescriptions: New magnesium hydroxide [Milk of Magnesia] 400 mg/5 mL Suspension 30 ml PO BID PRN (Reason: constipation) 30 Days Qty: 300 RF: 0 Continued atorvastatin 40 mg Tablet 40 mg HS RF: 0 Changed valsartan 80 mg Tablet 40 mg PO DAILY 30 Days Qty: 0 RF: 0 Novolog Flexpen U-100 Insulin 100 unit/mL (3 mL) Insulin Pen 8 unit subcut TID 30 Days Qty: 0 RF: 0 Discontinued insulin glargine 100 unit/mL Solution subcut QAM Qty: 0 RF: 0 tamsulosin 0.4 mg Capsule 0.4 mg DAILY RF: 0 diclofenac potassium 25 mg Capsule 40 mg HS RF: 0 docusate sodium 100 mg Capsule 100 mg PO DAILY RF: 0 Stand-Alone Forms: [facility] Discharge Orders: Discharge Order (Routine); Ordered 04/20/19 Ordered By: Flash Juarez Admission Data Admit Date/Time: 04/16/19 18:46 Attending Provider: Flash Juarez Admit Provider: Trinidad Escobar Primary Care Provider: Alejandra Winslow Other Providers: Trinidad Escobar ; Juan Diego Alfaro ; Romeo Bueno ; Norman Gomez Service: Telemetry Other Interventions: Discharge Summary Assessment (RN) Last Done: 04/20/19 13:17 DC Date/Time DO NOT enter until pt leaves facility: 04/20/19 13:55
== END 2019-04-20 13:55 | disposition home health service (06) | DRG 243 ==
LOC: ED 15:19 → 2S 18:46
DX: I45.9 Conduction disorder, unspecified; Y92.510 Bank as the place of occurrence of the external cause; N17.9 Acute kidney failure, unspecified; W10.9XXA Fall (on) (from) unspecified stairs and steps, initial encounter; I49.5 Sick sinus syndrome; Z79.4 Long term (current) use of insulin; E11.9 Type 2 diabetes mellitus without complications; I44.0 Atrioventricular block, first degree; S01.01XA Laceration without foreign body of scalp, initial encounter